=== PATIENT | female | born 1970 | race American Indian/Alaskan Native ===

== ENCOUNTER 2019-03-21 12:57 | Outpatient (CLI) | payer OTHER ==
--- NOTE | 2019-03-23 09:28 | Mammography Report ---
DIGITAL SCREENING MAMMOGRAM WITH CAD, 03/21/2019 INDICATION: Routine screening mammography. Status post bilateral reduction mammoplasty in 2015. TECHNIQUE: Digital bilateral 2D mammography was obtained in the craniocaudal and mediolateral obliq ue projections. This examination was interpreted with the benefit of Computer-Aided Detection analysi s. COMPARISON: None available. However, she indicated that she has had a previous mammogram at [facility]. FINDINGS: Breast Density: The breasts are heterogeneously dense, which may obscure small masses. Bilateral parenchymal asymmetries and architectural distortion require comparison with the prior mamm ogram or additional imaging. No suspicious calcifications. IMPRESSION: Comparison with a previous mammogram is recommended. We will attempt to obtain a prior ma mmogram for comparison. If we do not obtain a prior mammogram within 30 days, a revised report will b e issued recommending a recall for additional imaging. Please be advised that the patient should not schedule an appointment for return until adequate time (at least 2 weeks) has passed breast to obtain the prior mammogram. Follow up recommendation: Obtain prior study for comparison Category 0: Incomplete. Needs additional imaging evaluation and/or prior mammograms for comparison. A "normal" or negative report should not discourage follow up or biopsy of a clinically significant f inding. A written summary of these findings will be mailed to the patient. The patient will be entered into a mammography reporting system which will generate a reminder letter for the patient's next appointmen t at the appropriate interval. The [employer] recommends yearly mammograms starting at age 40 and continuing as l arik as a woman is in good health. Breast MRI is recommended for women with an approximate 20-25% or greater lifetime risk of breast cancer, including women with a strong family history of breast or ova matthew cancer or who have been treated for Hodgkin's disease. Signer Name: Denis Landry MD Signed: 03/23/2019 9:23 AM Workstation Name: [id number]
== END 2019-03-21 12:58 | disposition home or self-care (01) ==
LOC: MAMMO 12:57
PROVIDERS: ATTEND Family Medicine
DX: Z12.31 Encounter for screening mammogram for malignant neoplasm of breast (principal); Z88.2 Allergy status to sulfonamides
CPT/HCPCS: 77067

== ENCOUNTER 2019-05-17 09:35 | Outpatient (CLI) | payer OTHER ==
--- NOTE | 2019-05-17 15:45 | Ultrasound Report ---
BILATERAL DIGITAL DIAGNOSTIC MAMMOGRAM WITH CAD 05/17/2019 BILATERAL COMPLETE BREAST ULTRASOUND INDICATION: BILATERAL ASYMMETRIES/ABNORMAL MAMMOGRAM TECHNIQUE: Digital bilateral mammographic imaging was performed. Spot compression views were obtaine d. Complete ultrasound of all four (4) quadrants was performed. This examination was interpreted with the benefit of Computer-Aided Detection (CAD) analysis. COMPARISON: 03/21/2019 FINDINGS: Breast Density: The breasts are heterogeneously dense, which may obscure small masses. MAMMOGRAPHIC FINDINGS: Bilateral spot compression views demonstrate satisfactory effacement of severa l bilateral mammographic asymmetries. However, circumscribed densities persist in each breast. ULTRASOUND FINDINGS: Complete sonographic evaluation of all 4 quadrants and retroareolar region was p erformed. Ultrasound of the right breast demonstrated a few benign cysts and no solid mass or suspi cious shadowing. The largest cyst is at 12:00 at the edge of the areola and measures 11 mm. A [address] at 1:00 at the edge of the areola. A 9 mm cyst at 7:00 6 cm from the nipple. Ultrasound of the left breast demonstrated a few benign cysts and no solid mass or suspicious shadowi ng. The largest cyst is at 2:00 6 cm from the nipple measuring 14 mm. A cyst at 2:00 6 cm from the ni pple measures 6 mm. IMPRESSION: Bilateral benign cysts and no suspicious findings. Follow up recommendation: Routine yearly BI-RADS Category 2: Benign. A "normal" or negative report should not discourage follow up or biopsy of a clinically significant f inding. A written summary of these findings will be mailed to the patient. The patient will be entered into a mammography reporting system which will generate a reminder letter for the patient's next appointmen t at the appropriate interval. According to the [employer], yearly mammograms are recommended starting at age 40 and continuing as long as a woman is in good health. Breast MRI is recommended for women with an renetta roximately 20-25% or greater lifetime risk of breast cancer, including women with a strong family his tory of breast or ovarian cancer and women who have been treated for Hodgkin's disease. Signer Name: Denis Landry MD Signed: 05/17/2019 3:40 PM Workstation Name: [id number]
== END 2019-05-17 09:36 | disposition home or self-care (01) ==
LOC: MAMMO 09:35
PROVIDERS: ATTEND Family Medicine
DX: N60.01 Solitary cyst of right breast (principal); N60.02 Solitary cyst of left breast
CPT/HCPCS: 77066

== ENCOUNTER 2020-05-24 11:18 | Outpatient (CLI) | payer OTHER | END 2020-05-24 11:19 | disposition home or self-care (01) | LOC: MAMMO 11:18 | PROVIDERS: ATTEND Family Medicine | DX: Z12.31 Encounter for screening mammogram for malignant neoplasm of breast (principal) | CPT/HCPCS: 77067 ==

== ENCOUNTER 2020-12-19 10:12 | Outpatient (CLI) | payer OTHER ==
[2020-12-19 11:32] LABS: Blood Urea Nitrogen 11 mg/dL (7-17)
--- NOTE | 2020-12-19 13:59 | Cat Scan Report ---
CT CHEST WITHOUT AND WITH IV CONTRAST INDICATION / CLINICAL INFORMATION: R07.9 CHEST PAIN [id number] 100ML. TECHNIQUE: Axial CT images were obtained through the chest before and after IV contrast. All CT scans at this [facility] are performed using CT dose reduction for ALARA by means of automated exposure control. COMPARISON: None available. FINDINGS: No focal consolidation, pleural effusion or pneumothorax. No well-defined nodular masses identified. Heart and aorta appear normal. Visualized portions of the upper abdomen appear normal. Mild scoliotic curvature the spine. Thyroid trachea appear normal. There are a few mildly prominent axillary nodes left slightly greater than right however these still. Subcentimeter short axis. No acute bone finding s are seen. ADDITIONAL FINDINGS: None. UPPER ABDOMEN: No significant abnormality. SKELETAL SYSTEM: No significant abnormality. IMPRESSION: No acute findings are seen. Scoliotic curvature the spine. Signer Name: Mayco Dangelo MD Signed: 12/19/2020 1:54 PM Workstation Name: [id number]
== END 2020-12-19 10:13 | disposition home or self-care (01) ==
LOC: CT 10:12
PROVIDERS: ATTEND Family Medicine
DX: R07.9 Chest pain, unspecified (principal); M41.84 Other forms of scoliosis, thoracic region
CPT/HCPCS: 36415; 71270; 82565; 84520; Q9967

== ENCOUNTER 2021-06-09 09:14 | Outpatient (CLI) | payer OTHER ==
--- NOTE | 2021-06-09 10:14 | Mammography Report ---
DIGITAL SCREENING MAMMOGRAM WITH CAD, 06/09/2021 CLINICAL INFORMATION / INDICATION: Routine screening mammography. SCREENING MAMMOGRAM TECHNIQUE: Digital bilateral 2D mammography was obtained in the craniocaudal and mediolateral obliqu e projections. This examination was interpreted with the benefit of Computer-Aided Detection analysis . COMPARISON: 03/21/2019 through 05/24/2020. FINDINGS: Breast Density: The breasts are heterogeneously dense, which may obscure small masses. No dominant mass, suspicious calcifications, or architectural distortion in either breast. There are bilateral reduction changes. Benign-appearing nodularity and calcifications bilaterally are again identified. IMPRESSION: No mammographic evidence of malignancy. Follow up recommendation: Routine yearly BI-RADS Category 2: BENIGN. A "normal" or negative report should not discourage follow up or biopsy of a clinically significant f inding. A written summary of these findings will be mailed to the patient. The patient will be entered into a mammography reporting system which will generate a reminder letter for the patient's next appointmen t at the appropriate interval. The [employer] recommends yearly mammograms starting at age 40 and continuing as l arik as a woman is in good health. Breast MRI is recommended for women with an approximate 20-25% or greater lifetime risk of breast cancer, including women with a strong family history of breast or ova matthew cancer or who have been treated for Hodgkin's disease. Signer Name: Brian Gann MD Signed: 06/09/2021 10:09 AM Workstation Name: [id number]
== END 2021-06-09 09:15 | disposition home or self-care (01) ==
LOC: MAMMO 09:14
PROVIDERS: ATTEND Family Medicine
DX: Z12.31 Encounter for screening mammogram for malignant neoplasm of breast (principal); N64.89 Other specified disorders of breast
CPT/HCPCS: 77067